=== PATIENT | male | born 1985 | race Caucasian/White ===

== ENCOUNTER 2017-09-29 22:17 | Observation (INO) ==
[2017-09-29] MEDS ORDERED: Haloperidol Lactate 5 MG/ML VIAL ONE (22:21)
[2017-09-29] MEDS ORDERED: *HR* LORazepam 2 MG/ML VIAL ONE (22:21)
--- NOTE | 2017-09-29 22:36 | Emergency Department Note ---
Disposition Clinical Impression: Drug abuse Altered mental status Qualifiers: Altered mental status type: unspecified Qualified Code(s): R41.82 - Altered mental status, unspecified UTI (urinary tract infection) Qualifiers: Indwelling urinary catheter type: unspecified Encounter type: initial encounter Disposition: Admitted As Inpatient Condition: Fair Time of Disposition: 03:48 General Adult HPI - General Chief complaint: ED Altered Mental Status Stated complaint: back pain/ chest pain Time Seen by Provider: 09/29/17 22:30 Source: patient, EMS Mode of arrival: EMS Limitations: altered mental status Nursing Notes Reviewed: Yes Vital Signs Reviewed: Yes - History of Present Illness HPI Narrative: 32-year-old male with known history of drug abuse presenting to the emergency department with chief complaint of altered mental status and chest pain. According to EMS patient was running from the police when he jumped off a 5 [place] [address]. Police restrained him and brought him to the police department. Patient was able to walk from the police car to the department when he started yelling stating everything hurt and started to become altered. They were concerned for drug ingestion. Patient does state he has chest pain in the room but is not alert and oriented to answer questions. No obvious sign of trauma externally. - Related Data Home Medications Medication Instructions Recorded Confirmed No Known Home Drugs 09/30/17 09/30/17 Allergies Allergy/AdvReac Type Severity Reaction Status Date / Time acetaminophen Allergy Swelling Verified 08/12/17 06:12 [From Tylenol-Codeine] of Lip/Tongue/Throat codeine Allergy Swelling Verified 08/12/17 06:12 [From Tylenol-Codeine] of Lip/Tongue/Throat Limitations: ROS unobtainable due to patients medical condition Past Medical History - Past Medical History Source: unable to obtain Medical history: Reports: no medical history - Social History Smoking Status: Unknown if ever smoked Physical Exam - General Limitations: altered mental status General appearance: appears intoxicated, in distress - Head Head exam: atraumatic, normocephalic, normal inspection - Eye Eye exam: Present: normal appearance, PERRL, EOMI. Absent: scleral icterus, conjunctival injection - ENT ENT exam: mucous membranes dry, other (Blue Discoloration around the lips. Not cyanosis. Most likely from an ingestion.) - Neck Neck exam: Present: normal inspection, trachea midline - Chest Chest inspection: Present: normal inspection, symmetric chest wall rise. Absent : rash - Respiratory Respiratory exam: Present: normal lung sounds bilaterally. Absent: respiratory distress, wheezes - Cardiovascular Cardiovascular exam: Present: normal rhythm, tachycardia, normal heart sounds - Abdominal Exam Abdominal exam: Present: soft. Absent: distention - Male exam: Present: normal inspection, normal testicular lie - Extremities Exam Extremities exam: Present: normal inspection - Back Exam Back exam: Present: normal inspection - Psychiatric Psychiatric exam: Present: agitated, anxious - Skin Skin exam: Present: warm Course Course Narrative: 32-year-old male presenting to the emergency department for altered mental status. Patient screaming in the room upon arrival. He is in a c-collar. Head to toe examination did not show any obvious sign of injury. Patient states everything hurts when being palpated. Patient tachycardic in the room and hyperventilating. Oxygen saturation stable. Decision was made to give 5 Haldol and 2 of Ativan IM. After patient was given medication he was no longer aggressive. Due to patient's history and am unable to provide us with a accurate physical exam we will frankel scan him. We will do a CT of the head, cervical spine, thoracic spine, lumbar spine, abdomen and pelvis along with CT of the chest. We will also obtain basic laboratory analysis for altered mental status. Patient is alert but not oriented. He is tachycardic but otherwise vital signs stable. Disposition will most likely be admission but pending results. - Reevaluation(s) Reevaluation #1: All patient's images have come back within normal limits. Laboratory analysis shows urinary tract infection along with polysubstance abuse. Otherwise benign. Patient is resting in the room. Vital signs stable. We will plan to admit the patient at this time for drug intoxication and altered mental status. I spoke with the hospitalist on-call Dr. Camarillo who agrees to accept the patient at this time. Vital Signs Temperature 98.3 F 09/29/17 22:26 Pulse Rate 145 09/29/17 22:26 Respiratory Rate 36 09/29/17 22:26 Blood Pressure 114/83 09/29/17 22:26 O2 Sat by Pulse Oximetry 97 09/29/17 22:26 Temperature 97.4 F L 09/30/17 01:54 Pulse Rate 80 09/30/17 01:54 Respiratory Rate 19 09/30/17 01:54 Blood Pressure 105/67 09/30/17 01:54 O2 Sat by Pulse Oximetry 100 09/30/17 01:54 Oxygen Delivery Oxygen Delivery Room Air Medical Decision Making - Lab Data Result diagrams: 09/29/17 23:10 09/29/17 23:10 Lab Results 09/29/17 09/29/17 09/29/17 Range/Units 23:10 23:10 23:46 WBC 10.8 (4.3-11.1) K/mcL RBC 4.57 (4.19-5.50) M/mcL Hgb 14.4 (12.9-16.9) g/dL Hct 40.3 (37.5-50.1) % MCV 88.2 (83.0-100.0) fL MCH 31.5 (28.0-33.3) pg MCHC 35.7 H (31.6-35.5) g/dL RDW 12.3 (11.5-14.5) % Plt Count 187 (140-400) K/mcL MPV 8.7 L (9.4-12.4) fL Immature Gran % 0.4 (0-4) % Seg Neutrophils % 73.0 % Lymphocytes % 17.9 % Monocytes % 7.8 % Eosinophils % 0.6 % Basophils % 0.3 % Neutrophils # 7.9 (1.6-8.9) K/mcL Lymphocytes # 1.9 (0.6-4.6) K/mcL Monocytes # 0.8 (0.0-1.3) K/mcL Eosinophils # 0.1 (0.0-0.6) K/mcL Basophils # 0.0 (0.0-0.2) K/mcL Sodium 138 (136-145) mEq/L Potassium 3.7 (3.5-5.1) mEq/L Chloride 107 (98-107) mEq/L Carbon Dioxide 25 (23-29) mEq/L BUN 16 (6-20) mg/dL Creatinine 1.23 (0.70-1.30) mg/dL Est GFR ( Amer) > 60 (> 60) Est GFR (Non-Af Amer) > 60 (> 60) BUN/Creatinine Ratio 13 (6-26) Glucose 115 H (70-105) mg/dL Calculated Osmolality 288 (280-300) Calcium 9.6 (8.6-10.3) mg/dL Total Bilirubin 0.9 (0.3-1.0) mg/dL Direct Bilirubin 0.2 (0.0-0.2) mg/dL Indirect Bilirubin 0.7 (0.0-1.2) mg/dL AST 21 (13-39) Units/L ALT 19 (7-52) Units/L Alkaline Phosphatase 59 (34-104) Units/L Troponin I < 0.03 (< 0.04) ng/mL Serum Total Protein 6.9 (6.4-8.9) g/dL Albumin 4.3 (3.5-5.7) g/dL Globulin 2.6 (2.4-3.5) g/dL Albumin/Globulin Ratio 1.7 (1.1-2.2) Urine Color Dark Yellow (Yellow) Urine Clarity Cloudy A (Clear) Urine pH 6.0 (5.0-8.0) pH Units Ur Specific [place] > 1.030 H (1.010-1.025) Urine Protein 30 H (Neg-Trace) mg/dL Urine Glucose (UA) Normal (Normal) mg/dL Urine Ketones Trace H (Negative) mg/dL Urine Blood Small H (Negative) Urine Nitrite Positive A (Negative) Urine Bilirubin Negative (Negative) Urine Urobilinogen Normal (Normal) mg/dL Ur Leukocyte Esterase Moderate H (Negative) Urine Microscopic RBC 0-3 (0-3) per hpf Urine Microscopic WBC TNTC H (0-3) per hpf Ur Squamous Epith Cells Few (None-Few) per lpf Urine Bacteria Moderate H (None-Few) per hpf Hyaline Casts None Seen (None-Few) per lpf Urine Sperm Present Ur Culture Indicated? YES A (NO) Urine Opiates Screen (Qzrtyh=918) ng/mL Ur Barbiturates Screen (Hlxdbi=424) ng/mL Ur Phencyclidine Scrn (Cutoff=25) ng/mL Ur Amphetamines Screen (Gsytmv=0007) ng/mL U Benzodiazepines Scrn (Djdjal=125) ng/mL Urine Cocaine Screen (Cutoff= 300) ng/mL U Marijuana (THC) Screen (Cutoff = 50) ng/mL Ethyl Alcohol < 10 (Less than 10) mg/dL 09/29/17 Range/Units 23:46 WBC (4.3-11.1) K/mcL RBC (4.19-5.50) M/mcL Hgb (12.9-16.9) g/dL Hct (37.5-50.1) % MCV (83.0-100.0) fL MCH (28.0-33.3) pg MCHC (31.6-35.5) g/dL RDW (11.5-14.5) % Plt Count (140-400) K/mcL MPV (9.4-12.4) fL Immature Gran % (0-4) % Seg Neutrophils % % Lymphocytes % % Monocytes % % Eosinophils % % Basophils % % Neutrophils # (1.6-8.9) K/mcL Lymphocytes # (0.6-4.6) K/mcL Monocytes # (0.0-1.3) K/mcL Eosinophils # (0.0-0.6) K/mcL Basophils # (0.0-0.2) K/mcL Sodium (136-145) mEq/L Potassium (3.5-5.1) mEq/L Chloride (98-107) mEq/L Carbon Dioxide (23-29) mEq/L BUN (6-20) mg/dL Creatinine (0.70-1.30) mg/dL Est GFR ( Amer) (> 60) Est GFR (Non-Af Amer) (> 60) BUN/Creatinine Ratio (6-26) Glucose (70-105) mg/dL Calculated Osmolality (280-300) Calcium (8.6-10.3) mg/dL Total Bilirubin (0.3-1.0) mg/dL Direct Bilirubin (0.0-0.2) mg/dL Indirect Bilirubin (0.0-1.2) mg/dL AST (13-39) Units/L ALT (7-52) Units/L Alkaline Phosphatase (34-104) Units/L Troponin I (< 0.04) ng/mL Serum Total Protein (6.4-8.9) g/dL Albumin (3.5-5.7) g/dL Globulin (2.4-3.5) g/dL Albumin/Globulin Ratio (1.1-2.2) Urine Color (Yellow) Urine Clarity (Clear) Urine pH (5.0-8.0) pH Units Ur Specific [place] (1.010-1.025) Urine Protein (Neg-Trace) mg/dL Urine Glucose (UA) (Normal) mg/dL Urine Ketones (Negative) mg/dL Urine Blood (Negative) Urine Nitrite (Negative) Urine Bilirubin (Negative) Urine Urobilinogen (Normal) mg/dL Ur Leukocyte Esterase (Negative) Urine Microscopic RBC (0-3) per hpf Urine Microscopic WBC (0-3) per hpf Ur Squamous Epith Cells (None-Few) per lpf Urine Bacteria (None-Few) per hpf Hyaline Casts (None-Few) per lpf Urine Sperm Ur Culture Indicated? (NO) Urine Opiates Screen Positive H (Cnstek=132) ng/mL Ur Barbiturates Screen Negative (Evtsnu=744) ng/mL Ur Phencyclidine Scrn Negative (Cutoff=25) ng/mL Ur Amphetamines Screen Positive H (Gvpxke=0692) ng/mL U Benzodiazepines Scrn Positive H (Ibctio=099) ng/mL Urine Cocaine Screen Positive H (Cutoff= 300) ng/mL U Marijuana (THC) Screen Positive H (Cutoff = 50) ng/mL Ethyl Alcohol (Less than 10) mg/dL - EKG Data EKG #1 EKG attestation: Yes I reviewed and interpreted this EKG. EKG results narrative: Sinus tachycardia. Significant artifact. 145 beats minute. NM interval 110, QRS 82, QTC 359. Attestation Statement - Attestation Attestation: I examined this patient and my medical decision-making was reviewed with the Resident Physician. I agree with the documented findings, disposition and treatment plan as described except to the extent set forth below. Polysubstance overdose with possible injuries from jumping off a small bridge. There are no findings of trauma on CAT scan. The patient was chemically subdued on arrival to the ER due to agitation. He did have SVT but this resolved with chemical sedation. I do suspect sympathomimetic toxidrome. The patient be admitted after initiation of IV fluids and for clearance of mental status. I spent greater than 35 minutes of critical care time resuscitating this acutely ill patient suffering from drug intoxication as well as injuries after fall. This was excluding billable procedures.
[2017-09-29] MEDS ORDERED: *HR* LORazepam 2 MG/ML VIAL IM ONE (22:39)
[2017-09-29] MEDS ORDERED: Haloperidol Lactate 5 MG/ML VIAL IM ONE (22:39)
[2017-09-29] MEDS ORDERED: Ziprasidone injection 20 MG/ML VIAL IM ONE ×2 (22:43)
[2017-09-29 23:35] LABS: Basophils % 0.3 %; Eosinophils # 0.1 K/mcL (0.0-0.6); Eosinophils % 0.6 %; Hematocrit 40.3 % (37.5-50.1); Hemoglobin 14.4 g/dL (12.9-16.9); Immature Granulocytes % 0.4 % (0-4); Lymphocytes # 1.9 K/mcL (0.6-4.6); Lymphocytes % 17.9 %; Mean Corpuscular HGB Conc 35.7 g/dL (31.6-35.5); Mean Corpuscular Hemoglobin 31.5 pg (28.0-33.3); Mean Corpuscular Volume 88.2 fL (83.0-100.0); Mean Platelet Volume 8.7 fL (9.4-12.4); Monocytes # 0.8 K/mcL (0.0-1.3); Monocytes % 7.8 %; Neutrophils # 7.9 K/mcL (1.6-8.9); Platelet Count 187 K/mcL (140-400); Red Blood Count 4.57 M/mcL (4.19-5.50); Red Cell Distribution Width 12.3 % (11.5-14.5)
[2017-09-29 23:59] LABS: Troponin I < 0.03 ng/mL (< 0.04)
[2017-09-30 00:02] LABS: Alanine Aminotransferase 19 Units/L (7-52); Albumin 4.3 g/dL (3.5-5.7); Albumin/Globulin Ratio 1.7 (1.1-2.2); Alkaline Phosphatase 59 Units/L (34-104); Aspartate Amino Transferase 21 Units/L (13-39); BUN/Creatinine Ratio 13 (6-26); Bilirubin,Direct 0.2 mg/dL (0.0-0.2); Bilirubin,Indirect 0.7 mg/dL (0.0-1.2); Bilirubin,Total 0.9 mg/dL (0.3-1.0); Blood Urea Nitrogen 16 mg/dL (6-20); Calcium 9.6 mg/dL (8.6-10.3); Carbon Dioxide 25 mEq/L (23-29); Chloride 107 mEq/L (98-107); Globulin 2.6 g/dL (2.4-3.5); Glucose 115 mg/dL (70-105); Osmolality,Calculated 288 (280-300); Potassium 3.7 mEq/L (3.5-5.1); Sodium 138 mEq/L (136-145); Total Protein 6.9 g/dL (6.4-8.9); eGFR For African Americans > 60 (> 60); eGFR For Non-African Americans > 60 (> 60)
[2017-09-30 00:20] LABS: Bilirubin,Urine Negative (Negative); Blood,Urine Small (Negative); Clarity,Urine Cloudy (Clear); Color,Urine Dark Yellow (Yellow); Glucose,Urine (UA) Normal (Normal); Ketones,Urine Trace mg/dL (Negative); Leukocyte Esterase,Urine Moderate (Negative); Nitrite,Urine Positive (Negative); Protein,Urine 30 mg/dL (Neg-Trace); Specific Gravity,Urine > 1.030 (1.010-1.025); Urobilinogen,Urine Normal (Normal)
[2017-09-30 00:22] LABS: Bacteria,Urine Moderate per hpf (None-Few); Squamous Epithelial Cell,Urine Few per lpf (None-Few); WBC,Urine TNTC per hpf (0-3)
[2017-09-30 00:30] LABS: Amphetamine Screen,Urine Positive ng/mL (Cutoff=1000); Barbiturate Screen,Urine Negative ng/mL (Cutoff=200); Benzodiazepines Screen,Urine Positive ng/mL (Cutoff=200); Cannabinoid Screen,Urine Positive ng/mL (Cutoff = 50); Cocaine Screen,Urine Positive ng/mL (Cutoff= 300); Opiate Screen,Urine Positive ng/mL (Cutoff=300); Phencyclidine Screen,Urine Negative ng/mL (Cutoff=25)
[2017-09-30] MEDS ORDERED: cefTRIAXone 1,000 MG in Water for inj. (sterile) 20 ML 10 ML IVP ONE (00:31)
[2017-09-30 00:39] LABS: Hyaline Casts,Urine None Seen per lpf (None-Few); Sperm,Urine Present
[2017-09-30 00:40] LABS: RBC,Urine 0-3 per hpf (0-3)
[2017-09-30] MEDS ORDERED: Naloxone 0.4 MG/ML INJ IVP PRN (00:57)
[2017-09-30] MEDS ORDERED: Acetaminophen 325 MG TABLET PO PRN (00:57)
[2017-09-30] MEDS ORDERED: 0.9 % Sodium Chloride 1,000 ML IVC SCH (01:00)
--- NOTE | 2017-09-30 01:03 | Internal Med History&Physical ---
Date of Encounter: 09/30/17 Time of Encounter: 00:59 Assessment and Plan (1) Encephalopathy acute Current visit: Yes Status: Acute Patient is encephalopathic for the most part. He is lethargic and only moans. I suspect this is all from and drug effects. The patient was also given multiple doses of Haldol and Ativan and Geodon in the ED for agitation. I doubt that this is affecting of heroin/opioids as the patient was not really lethargic/unresponsive upon presentation and became like that after he was given medications in the ED. He does have Narcan ordered and we will give him a dose as trial. Otherwise will just continue to monitor. CT head was unremarkable. (2) UTI (urinary tract infection) Current visit: Yes Status: Acute Start ceftriaxone. He was given a dose in the ED. Follow up on cultures. Qualifiers: Indwelling urinary catheter type: unspecified Encounter type: initial encounter Qualified Code(s): T83.511A - Infection and inflammatory reaction due to indwelling urethral catheter, initial encounter; N39.0 - Urinary tract infection, site not specified; N39.0 - Urinary tract infection, site not specified (3) Drug abuse Current visit: Yes Status: Acute The patient has positive urine drug screen for multiple drugs including cocaine , amphetamines, benzos, marijuana, opiates. Watch for withdrawal symptoms. The patient apparently had a heart rate reports the 200s at the police station. On initial presentation he was in the 150s., Heart rate is in the 80s. Continue to monitor. Telemetry. (4) DVT prophylaxis Current visit: Yes Status: Acute SCDs Internal Medicine - H&P: HPI Chief complaint: Tachycardia Admitted From: Emergency Dept Plans for Post Hospital Care: Home History of present illness: Mr. Grossman is a 32 year old male with no past medical history but non-IV drug abuse who was brought in by police earlier this evening. The patient apparently was being chased by police as they suspected burglary. The patient ran from the police however they were able to catch him later. While at the police station the patient started having trouble breathing and his heart rate was in the 200s reportedly. At that point he was brought into the ED where his heart rate was in the 140s. The patient was alert and oriented throughout. The patient had some blue powder out on him and on his mouth. It was suspected that the patient had injected something. Urine drug screen came back positive for amphetamines, cocaine, opiates, benzos, marijuana. The patient denies injecting or using anything. He is very lethargic and barely answers questions. Upon presentation apparently he was agitated and had to be given multiple medications including Geodon/Haldol/Ativan. He had a positive UA and was given ceftriaxone. He denies fever, chills, nausea, vomiting, blurry vision , headache, chest pain, shortness breath, abdominal pain, urinary symptoms, or neurological symptoms. The patient underwent, workup in the ED that was unrevealing. Past Med Surg Social Fam HX - Past Medical History Medical history: no medical history - Social History Smoking Status: Unknown if ever smoked Alcohol use: none Drug use: none Internal Medicine - H&P: Meds No Known Home Drugs 09/30/17 [History] 3 Allergy/AdvReac Type Severity Reaction Status Date / Time acetaminophen Allergy Swelling Verified 08/12/17 06:12 [From Tylenol-Codeine] of Lip/Tongue/Throat codeine Allergy Swelling Verified 08/12/17 06:12 [From Tylenol-Codeine] of Lip/Tongue/Throat All Systems PM: A 10-system review of systems was performed and is negative for pertinent findings except as documented above in the HPI. Review of systems: All systems reviewed are negative except as mentioned above - Constitutional Vitals: Temp Pulse Resp BP Pulse Ox 98.3 F 89 18 106/72 99 09/29/17 22:26 09/30/17 00:38 09/30/17 00:38 09/30/17 00:38 09/30/17 00:38 Exam: GEN: NAD HEENT: AT, NC, No cyanosis, oral mucosa is moist, No JVD Lymphatics: No lymphadenoapthy Eyes: Extrocular muscles intact, anicteric CVS:RRR. S1, S2, No m/r/g RESP: CTAB ABD: Soft, NT, ND, +BS EXT: No edema, No rashes, 2+ DP NEURO: Nonfocal, CN II-XII intact, No focal motor or sensory deficits Psych: Cooperative, Not anxious or depressed Internal Med - H&P Results - Labs CBC & Chem 7: 09/29/17 23:10 09/29/17 23:10 Labs: Short CBC 09/29/17 Range/Units 23:10 WBC 10.8 (4.3-11.1) K/mcL Hgb 14.4 (12.9-16.9) g/dL Hct 40.3 (37.5-50.1) % Plt Count 187 (140-400) K/mcL Neutrophils # 7.9 (1.6-8.9) K/mcL BMP 09/29/17 23:10 Sodium 138 Potassium 3.7 Chloride 107 Carbon Dioxide 25 BUN 16 Creatinine 1.23 Glucose 115 H Calcium 9.6 Cardiac Enzymes 09/29/17 Range/Units 23:10 Troponin I < 0.03 (< 0.04) ng/mL Liver Function 09/29/17 Range/Units 23:10 Total Bilirubin 0.9 (0.3-1.0) mg/dL Direct Bilirubin 0.2 (0.0-0.2) mg/dL AST 21 (13-39) Units/L ALT 19 (7-52) Units/L Alkaline Phosphatase 59 (34-104) Units/L Albumin 4.3 (3.5-5.7) g/dL Urine 09/29/17 Range/Units 23:46 Urine Color Dark Yellow (Yellow) Urine Clarity Cloudy A (Clear) Urine pH 6.0 (5.0-8.0) pH Units Ur Specific [place] > 1.030 H (1.010-1.025) Urine Protein 30 H (Neg-Trace) mg/dL Urine Glucose (UA) Normal (Normal) mg/dL - Impressions ITS Impressions Abdomen/Pelvis CT 09/29/17 22:31 IMPRESSION: No evidence of an acute injury in the chest, abdomen or pelvis. 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 There are few small bilateral nonobstructing renal calculi. D/ / Nilay Gaitan MD / Nilay Gaitan MD Interpreting Provider: Nilay Gaitan MD Cervical Spine CT 09/29/17 22:31 IMPRESSION: No acute intracranial abnormality. No acute abnormality of the cervical spine. *Note that if pain persists or worsens, or if clinically there is concern for CT occult acute cervical abnormality, flexion/extension C-spine series or MRI cervical spine may be considered for additional evaluation. D/ / Kp Gordillo / Kp Gordillo Interpreting Provider: Kp Gordillo Chest CT 09/29/17 22:31 IMPRESSION: No evidence of an acute injury in the chest, abdomen or pelvis. 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 There are few small bilateral nonobstructing renal calculi. D/ / Nilay Gaitan MD / Nilay Gaitan MD Interpreting Provider: Nilay Gaitan MD Chest X-Ray 09/29/17 22:31 IMPRESSION: No radiographic evidence of acute cardiopulmonary disease. D/ / Kp Gordillo / Kp Gordillo Interpreting Provider: Kp Gordillo Head CT 09/29/17 22:31 IMPRESSION: No acute intracranial abnormality. No acute abnormality of the cervical spine. *Note that if pain persists or worsens, or if clinically there is concern for CT occult acute cervical abnormality, flexion/extension C-spine series or MRI cervical spine may be considered for additional evaluation. D/ / Kp Gordillo / Kp Mancusoine Interpreting Provider: Kp Gordillo Lumbar Spine CT 09/29/17 22:31 IMPRESSION: No evidence for fracture. D/ / Terry Kim MD / Terry Kim MD Interpreting Provider: Terry Kim MD Thoracic Spine CT 09/29/17 22:31 IMPRESSION: Unremarkable CT of the thoracic spine. D/ / Kp Gordillo / Kp Gordillo Interpreting Provider: Kp Gordillo Pelvis X-Ray 09/29/17 22:33 IMPRESSION: Unremarkable AP pelvis radiograph. Findings as described involving the proximal right and left femur can be seen with femoroacetabular impingement syndrome. If pain persists or worsens, then additional evaluation with MRI is indicated to ensure no underlying radiographically occult process such as fracture, AVN or transient osteoporosis. D/ / Kp Gordillo / Kp Gordillo Interpreting Provider: Kp Gordillo
[2017-09-30 02:08] LABS: Ethanol < 10 mg/dL (Less than 10)
[2017-09-30 06:52] LABS: BUN/Creatinine Ratio 15 (6-26); Blood Urea Nitrogen 17 mg/dL (6-20); Calcium 8.7 mg/dL (8.6-10.3); Carbon Dioxide 23 mEq/L (23-29); Chloride 110 mEq/L (98-107); Glucose 94 mg/dL (70-105); Magnesium 2.6 mg/dL (1.6-2.6); Osmolality,Calculated 291 (280-300); Sodium 140 mEq/L (136-145); eGFR For African Americans > 60 (> 60); eGFR For Non-African Americans > 60 (> 60)
[2017-09-30 06:56] LABS: Basophils % 0.3 %; Eosinophils # 0.1 K/mcL (0.0-0.6); Eosinophils % 1.2 %; Hematocrit 40.1 % (37.5-50.1); Hemoglobin 13.8 g/dL (12.9-16.9); Immature Granulocytes % 0.1 % (0-4); Lymphocytes # 2.6 K/mcL (0.6-4.6); Lymphocytes % 28.3 %; Mean Corpuscular HGB Conc 34.4 g/dL (31.6-35.5); Mean Corpuscular Hemoglobin 30.6 pg (28.0-33.3); Mean Corpuscular Volume 88.9 fL (83.0-100.0); Mean Platelet Volume 8.9 fL (9.4-12.4); Monocytes # 0.8 K/mcL (0.0-1.3); Monocytes % 8.4 %; Neutrophils # 5.8 K/mcL (1.6-8.9); Platelet Count 181 K/mcL (140-400); Red Blood Count 4.51 M/mcL (4.19-5.50); Red Cell Distribution Width 12.9 % (11.5-14.5); Segmented Neutrophils % 61.7 %
[2017-09-30] MEDS ORDERED: cefTRIAXone 1,000 MG in Water for inj. (sterile) 20 ML 10 ML IVP SCH (09:00)
[2017-09-30 11:04] VITALS: BP 126/76
--- NOTE | 2017-09-30 19:41 | Electrocardiograph Report ---
[address] [address] Test Date: 2017-09-29 Pat Name: Alistair Grossman Department: 103 Room: 3B Gender: M [employer]: LRS : 1985 Requested By: Mindi Tavarez Order Number: [id number] Reading MD: Robert Cheng Measurements Intervals Frederic Rate: 145 P: 71 IA: 110 QRS: 72 QRSD: 82 T: -4 QT: 275 QTc: 359 Interpretive Statements SINUS TACHYCARDIA WITH SHORT IA INTERVAL BASELINE ARTIFACT COMPLICATES ACCURATE INTERPRETATION Electronically Signed On 09-30-2017 19:39:42 EDT by Robert Cheng
== END 2017-09-30 11:55 | disposition left against medical advice (07) ==
LOC: 3BNU 22:17 → EMEROO 22:17 → 3BNU 09-30 01:51
PROVIDERS: ADMIT Internal Medicine; ATTEND Registered Nurse

== ENCOUNTER 2018-01-06 17:02 | Observation (INO) ==
[2018-01-06] MEDS ORDERED: Ondansetron 4 MG/2 ML VIAL ONE (17:06)
[2018-01-06] MEDS ORDERED: Ondansetron 4 MG/2 ML VIAL IVP ONE (17:08)
--- NOTE | 2018-01-06 17:08 | Emergency Department Note ---
Disposition Clinical Impression: Overdose, Polysubstance abuse Disposition: Still a Patient Condition: Fair General Adult HPI - General Chief complaint: ED Overdose Stated complaint: OD Time Seen by Provider: 01/06/18 17:06 - Related Data Home Medications Medication Instructions Recorded Confirmed No Known Home Drugs 09/30/17 01/06/18 Allergies Allergy/AdvReac Type Severity Reaction Status Date / Time acetaminophen Allergy Swelling Verified 08/12/17 06:12 [From Tylenol-Codeine] of Lip/Tongue/Throat codeine Allergy Swelling Verified 08/12/17 06:12 [From Tylenol-Codeine] of Lip/Tongue/Throat Past Medical History - Past Medical History Medical history: Reports: no medical history - Social History Smoking Status: Unknown if ever smoked Alcohol use: Reports: none Drug use: Reports: cocaine, opiates, marijuana, methamphetamine Course Vital Signs Temperature 97.4 F L 01/06/18 17:05 Pulse Rate 89 01/06/18 17:05 Respiratory Rate 14 01/06/18 17:05 Blood Pressure 137/116 01/06/18 17:05 O2 Sat by Pulse Oximetry 99 01/06/18 17:05 Temperature 97.4 F L 01/06/18 17:05 Pulse Rate 82 01/06/18 21:21 Respiratory Rate 16 01/06/18 21:21 Blood Pressure 120/75 01/06/18 21:21 O2 Sat by Pulse Oximetry 98 01/06/18 21:21 Oxygen Delivery Oxygen Delivery Room Air Medical Decision Making - Lab Data Result diagrams: 01/06/18 17:13 01/06/18 17:13 Lab Results 01/06/18 01/06/18 01/06/18 Range/Units 17:13 17:13 17:21 WBC 9.1 (4.3-11.1) K/mcL RBC 4.54 (4.19-5.50) M/mcL Hgb 13.9 (12.9-16.9) g/dL Hct 40.7 (37.5-50.1) % MCV 89.6 (83.0-100.0) fL MCH 30.6 (28.0-33.3) pg MCHC 34.2 (31.6-35.5) g/dL RDW 12.4 (11.5-14.5) % Plt Count 207 (140-400) K/mcL MPV 8.8 L (9.4-12.4) fL Immature Gran % 0.4 (0-4) % Seg Neutrophils % 77.2 % Lymphocytes % 16.1 % Monocytes % 5.6 % Eosinophils % 0.3 % Basophils % 0.4 % Neutrophils # 7.0 (1.6-8.9) K/mcL Lymphocytes # 1.5 (0.6-4.6) K/mcL Monocytes # 0.5 (0.0-1.3) K/mcL Eosinophils # 0.0 (0.0-0.6) K/mcL Basophils # 0.0 (0.0-0.2) K/mcL Sodium 139 (136-145) mEq/L Potassium 3.9 (3.5-5.1) mEq/L Chloride 107 (98-107) mEq/L Carbon Dioxide 22 L (23-29) mEq/L BUN 10 (6-20) mg/dL Creatinine 1.04 (0.70-1.30) mg/dL Est GFR ( Amer) > 60 (> 60) Est GFR (Non-Af Amer) > 60 (> 60) BUN/Creatinine Ratio 10 (6-26) Glucose 125 H (70-105) mg/dL Calculated Osmolality 289 (280-300) Calcium 9.4 (8.6-10.3) mg/dL Total Bilirubin 0.6 (0.3-1.0) mg/dL Direct Bilirubin 0.2 (0.0-0.2) mg/dL Indirect Bilirubin 0.4 (0.0-1.2) mg/dL AST 16 (13-39) Units/L ALT 16 (7-52) Units/L Alkaline Phosphatase 65 (34-104) Units/L Serum Total Protein 6.9 (6.4-8.9) g/dL Albumin 3.9 (3.5-5.7) g/dL Globulin 3.0 (2.4-3.5) g/dL Albumin/Globulin Ratio 1.3 (1.1-2.2) Urine Color Dark Yellow (Yellow) Urine Clarity Cloudy A (Clear) Urine pH 7.5 (5.0-8.0) pH Units Ur Specific [place] 1.028 H (1.010-1.025) Urine Protein Trace (Neg-Trace) mg/dL Urine Glucose (UA) Normal (Normal) mg/dL Urine Ketones Trace H (Negative) mg/dL Urine Blood Negative (Negative) Urine Nitrite Negative (Negative) Urine Bilirubin Negative (Negative) Urine Urobilinogen Normal (Normal) mg/dL Ur Leukocyte Esterase Trace H (Negative) Urine Microscopic RBC 5-15 H (0-3) per hpf Urine Microscopic WBC 5-15 H (0-3) per hpf Ur Squamous Epith Cells Many H (None-Few) per lpf Urine Bacteria None Seen (None-Few) per hpf Hyaline Casts None Seen (None-Few) per lpf Urine Sperm Present Salicylates < 2.5 L (15.0-30.0) mg/dL Urine Opiates Screen (Lnhjqz=099) ng/mL Acetaminophen < 10 L (10-20) mcg/mL Ur Barbiturates Screen (Vrwrng=049) ng/mL Ur Phencyclidine Scrn (Cutoff=25) ng/mL Ur Amphetamines Screen (Qaoeuv=4503) ng/mL U Benzodiazepines Scrn (Lbwnkv=071) ng/mL Urine Cocaine Screen (Cutoff= 300) ng/mL U Marijuana (THC) Screen (Cutoff = 50) ng/mL Ur Drug Screen Interp Ethyl Alcohol < 10 (Less than 10) mg/dL 01/06/18 Range/Units 17:21 WBC (4.3-11.1) K/mcL RBC (4.19-5.50) M/mcL Hgb (12.9-16.9) g/dL Hct (37.5-50.1) % MCV (83.0-100.0) fL MCH (28.0-33.3) pg MCHC (31.6-35.5) g/dL RDW (11.5-14.5) % Plt Count (140-400) K/mcL MPV (9.4-12.4) fL Immature Gran % (0-4) % Seg Neutrophils % % Lymphocytes % % Monocytes % % Eosinophils % % Basophils % % Neutrophils # (1.6-8.9) K/mcL Lymphocytes # (0.6-4.6) K/mcL Monocytes # (0.0-1.3) K/mcL Eosinophils # (0.0-0.6) K/mcL Basophils # (0.0-0.2) K/mcL Sodium (136-145) mEq/L Potassium (3.5-5.1) mEq/L Chloride (98-107) mEq/L Carbon Dioxide (23-29) mEq/L BUN (6-20) mg/dL Creatinine (0.70-1.30) mg/dL Est GFR ( Amer) (> 60) Est GFR (Non-Af Amer) (> 60) BUN/Creatinine Ratio (6-26) Glucose (70-105) mg/dL Calculated Osmolality (280-300) Calcium (8.6-10.3) mg/dL Total Bilirubin (0.3-1.0) mg/dL Direct Bilirubin (0.0-0.2) mg/dL Indirect Bilirubin (0.0-1.2) mg/dL AST (13-39) Units/L ALT (7-52) Units/L Alkaline Phosphatase (34-104) Units/L Serum Total Protein (6.4-8.9) g/dL Albumin (3.5-5.7) g/dL Globulin (2.4-3.5) g/dL Albumin/Globulin Ratio (1.1-2.2) Urine Color (Yellow) Urine Clarity (Clear) Urine pH (5.0-8.0) pH Units Ur Specific [place] (1.010-1.025) Urine Protein (Neg-Trace) mg/dL Urine Glucose (UA) (Normal) mg/dL Urine Ketones (Negative) mg/dL Urine Blood (Negative) Urine Nitrite (Negative) Urine Bilirubin (Negative) Urine Urobilinogen (Normal) mg/dL Ur Leukocyte Esterase (Negative) Urine Microscopic RBC (0-3) per hpf Urine Microscopic WBC (0-3) per hpf Ur Squamous Epith Cells (None-Few) per lpf Urine Bacteria (None-Few) per hpf Hyaline Casts (None-Few) per lpf Urine Sperm Salicylates (15.0-30.0) mg/dL Urine Opiates Screen Positive H (Tvunxf=831) ng/mL Acetaminophen (10-20) mcg/mL Ur Barbiturates Screen Negative (Hfptzb=830) ng/mL Ur Phencyclidine Scrn Negative (Cutoff=25) ng/mL Ur Amphetamines Screen Positive H (Hgdact=5292) ng/mL U Benzodiazepines Scrn Negative (Vpbbyw=790) ng/mL Urine Cocaine Screen Positive H (Cutoff= 300) ng/mL U Marijuana (THC) Screen Positive H (Cutoff = 50) ng/mL Ur Drug Screen Interp See Below Ethyl Alcohol (Less than 10) mg/dL Critical Care Time Critical Care Time: Yes Total Critical Care Time: 30 Attestation: The high probability of a clinically significant, sudden or life threatening deterioration of the [] system(s) required my full and direct attention, intervention and personal management. The aggregate critical care time was [] minutes. This time is in addition to time spent performing reported procedures but includes the following: [] Data Review and interpretation [] Patient assessment and monitoring of vital signs [] Documentation [] Medication orders and management Attestation Statement - Attestation Attestation: I examined this patient and my medical decision-making was reviewed with the Resident Physician. I agree with the documented findings, disposition and treatment plan as described except to the extent set forth below. [id number] time provided Patient arrives by EMS with stable [employer] personnel present. The patient admits to using heroin, fentanyl, Xanax. He denies ingesting intoxicants by swallowing anything. He was given 14 mg of Narcan prehospital with improvement of symptoms. The patient is anxious upon arrival and protecting his airway
--- NOTE | 2018-01-06 17:14 | Emergency Department Note ---
Overdose - Lab Data Result diagrams: 01/06/18 17:13 01/06/18 17:13 Lab Results 01/06/18 01/06/18 01/06/18 Range/Units 17:13 17:13 17:21 WBC 9.1 (4.3-11.1) K/mcL RBC 4.54 (4.19-5.50) M/mcL Hgb 13.9 (12.9-16.9) g/dL Hct 40.7 (37.5-50.1) % MCV 89.6 (83.0-100.0) fL MCH 30.6 (28.0-33.3) pg MCHC 34.2 (31.6-35.5) g/dL RDW 12.4 (11.5-14.5) % Plt Count 207 (140-400) K/mcL MPV 8.8 L (9.4-12.4) fL Immature Gran % 0.4 (0-4) % Seg Neutrophils % 77.2 % Lymphocytes % 16.1 % Monocytes % 5.6 % Eosinophils % 0.3 % Basophils % 0.4 % Neutrophils # 7.0 (1.6-8.9) K/mcL Lymphocytes # 1.5 (0.6-4.6) K/mcL Monocytes # 0.5 (0.0-1.3) K/mcL Eosinophils # 0.0 (0.0-0.6) K/mcL Basophils # 0.0 (0.0-0.2) K/mcL Sodium 139 (136-145) mEq/L Potassium 3.9 (3.5-5.1) mEq/L Chloride 107 (98-107) mEq/L Carbon Dioxide 22 L (23-29) mEq/L BUN 10 (6-20) mg/dL Creatinine 1.04 (0.70-1.30) mg/dL Est GFR ( Amer) > 60 (> 60) Est GFR (Non-Af Amer) > 60 (> 60) BUN/Creatinine Ratio 10 (6-26) Glucose 125 H (70-105) mg/dL Calculated Osmolality 289 (280-300) Calcium 9.4 (8.6-10.3) mg/dL Total Bilirubin 0.6 (0.3-1.0) mg/dL Direct Bilirubin 0.2 (0.0-0.2) mg/dL Indirect Bilirubin 0.4 (0.0-1.2) mg/dL AST 16 (13-39) Units/L ALT 16 (7-52) Units/L Alkaline Phosphatase 65 (34-104) Units/L Serum Total Protein 6.9 (6.4-8.9) g/dL Albumin 3.9 (3.5-5.7) g/dL Globulin 3.0 (2.4-3.5) g/dL Albumin/Globulin Ratio 1.3 (1.1-2.2) Urine Color Dark Yellow (Yellow) Urine Clarity Cloudy A (Clear) Urine pH 7.5 (5.0-8.0) pH Units Ur Specific [place] 1.028 H (1.010-1.025) Urine Protein Trace (Neg-Trace) mg/dL Urine Glucose (UA) Normal (Normal) mg/dL Urine Ketones Trace H (Negative) mg/dL Urine Blood Negative (Negative) Urine Nitrite Negative (Negative) Urine Bilirubin Negative (Negative) Urine Urobilinogen Normal (Normal) mg/dL Ur Leukocyte Esterase Trace H (Negative) Urine Microscopic RBC 5-15 H (0-3) per hpf Urine Microscopic WBC 5-15 H (0-3) per hpf Ur Squamous Epith Cells Many H (None-Few) per lpf Urine Bacteria None Seen (None-Few) per hpf Hyaline Casts None Seen (None-Few) per lpf Urine Sperm Present Salicylates < 2.5 L (15.0-30.0) mg/dL Urine Opiates Screen (Pjqijb=598) ng/mL Acetaminophen < 10 L (10-20) mcg/mL Ur Barbiturates Screen (Ybqkxy=273) ng/mL Ur Phencyclidine Scrn (Cutoff=25) ng/mL Ur Amphetamines Screen (Szrabj=7410) ng/mL U Benzodiazepines Scrn (Tukbac=201) ng/mL Urine Cocaine Screen (Cutoff= 300) ng/mL U Marijuana (THC) Screen (Cutoff = 50) ng/mL Ur Drug Screen Interp Ethyl Alcohol < 10 (Less than 10) mg/dL 01/06/18 Range/Units 17:21 WBC (4.3-11.1) K/mcL RBC (4.19-5.50) M/mcL Hgb (12.9-16.9) g/dL Hct (37.5-50.1) % MCV (83.0-100.0) fL MCH (28.0-33.3) pg MCHC (31.6-35.5) g/dL RDW (11.5-14.5) % Plt Count (140-400) K/mcL MPV (9.4-12.4) fL Immature Gran % (0-4) % Seg Neutrophils % % Lymphocytes % % Monocytes % % Eosinophils % % Basophils % % Neutrophils # (1.6-8.9) K/mcL Lymphocytes # (0.6-4.6) K/mcL Monocytes # (0.0-1.3) K/mcL Eosinophils # (0.0-0.6) K/mcL Basophils # (0.0-0.2) K/mcL Sodium (136-145) mEq/L Potassium (3.5-5.1) mEq/L Chloride (98-107) mEq/L Carbon Dioxide (23-29) mEq/L BUN (6-20) mg/dL Creatinine (0.70-1.30) mg/dL Est GFR ( Amer) (> 60) Est GFR (Non-Af Amer) (> 60) BUN/Creatinine Ratio (6-26) Glucose (70-105) mg/dL Calculated Osmolality (280-300) Calcium (8.6-10.3) mg/dL Total Bilirubin (0.3-1.0) mg/dL Direct Bilirubin (0.0-0.2) mg/dL Indirect Bilirubin (0.0-1.2) mg/dL AST (13-39) Units/L ALT (7-52) Units/L Alkaline Phosphatase (34-104) Units/L Serum Total Protein (6.4-8.9) g/dL Albumin (3.5-5.7) g/dL Globulin (2.4-3.5) g/dL Albumin/Globulin Ratio (1.1-2.2) Urine Color (Yellow) Urine Clarity (Clear) Urine pH (5.0-8.0) pH Units Ur Specific [place] (1.010-1.025) Urine Protein (Neg-Trace) mg/dL Urine Glucose (UA) (Normal) mg/dL Urine Ketones (Negative) mg/dL Urine Blood (Negative) Urine Nitrite (Negative) Urine Bilirubin (Negative) Urine Urobilinogen (Normal) mg/dL Ur Leukocyte Esterase (Negative) Urine Microscopic RBC (0-3) per hpf Urine Microscopic WBC (0-3) per hpf Ur Squamous Epith Cells (None-Few) per lpf Urine Bacteria (None-Few) per hpf Hyaline Casts (None-Few) per lpf Urine Sperm Salicylates (15.0-30.0) mg/dL Urine Opiates Screen Positive H (Hfcfyb=940) ng/mL Acetaminophen (10-20) mcg/mL Ur Barbiturates Screen Negative (Ljbimy=101) ng/mL Ur Phencyclidine Scrn Negative (Cutoff=25) ng/mL Ur Amphetamines Screen Positive H (Nxiiby=3886) ng/mL U Benzodiazepines Scrn Negative (Jfjink=385) ng/mL Urine Cocaine Screen Positive H (Cutoff= 300) ng/mL U Marijuana (THC) Screen Positive H (Cutoff = 50) ng/mL Ur Drug Screen Interp See Below Ethyl Alcohol (Less than 10) mg/dL Overdose HPI - General Chief Complaint: ED Overdose Stated Complaint: OD Time Seen by Provider: 01/06/18 17:06 Nursing Notes Reviewed: Yes Vital Signs Reviewed: Yes - History of Present Illness HPI Narrative: 32-year-old male presents from scene via EMS. Police are also present. Per police, patient was a passenger in a vehicle stopped by the patrolman for routine traffic stop. Officer saw him ingest something. He became unresponsive. Police administered 12 mg intranasal Narcan. EMS administered an additional 2 mg for a total of 14 mg intranasal Narcan before the patient became somewhat responsive. Patient admits to taking a substances today. He states he does in heroin with fentanyl. He denies any ingestion of a large quantity at the traffic stop. ROS: Unobtainable secondary to patient's medical mental status. - Related Data Home Medications Medication Instructions Recorded Confirmed No Known Home Drugs 09/30/17 01/06/18 Allergies Allergy/AdvReac Type Severity Reaction Status Date / Time acetaminophen Allergy Swelling Verified 08/12/17 06:12 [From Tylenol-Codeine] of Lip/Tongue/Throat codeine Allergy Swelling Verified 08/12/17 06:12 [From Tylenol-Codeine] of Lip/Tongue/Throat Limitations: ROS unobtainable due to patients medical condition Past Medical History - Past Medical History Medical history: Reports: no medical history - Social History Smoking Status: Unknown if ever smoked Alcohol use: Reports: none Drug use: Reports: cocaine, opiates, marijuana, methamphetamine Physical Exam Primary survey: Airway: Intact; patient is mumbling, protecting his airway. Breathing: No chest wall tenderness. Bilateral breath sounds equal. Circulation: Bilateral radial, posterior tibial, pulses 2/4. No hemorrhaging. Disability: GCS 15. Exposure: No abrasions, lacerations, ecchymosis, or hematomas on the patient's scalp or face, trunk, extremities. Secondary survey Vital Signs Reviewed General: Patient HEENT: No facial asymmetry. Head is normocephalic and atraumatic. PERRLA. Nasal turbinates moist and pink without epistaxis. Oral mucosa moist. Cardiovascular: Heart tachycardic rate and regular and rhythm without clicks, rubs, gallops, or murmurs. No JVD. PMI nondisplaced. Respiratory: Symmetric chest rise with good respiratory effort. Bilateral breath sounds are clear without wheezing, crackles, or rhonchi. Abdomen: Bowel sounds present normoactive x-4 quadrants. Abdomen is soft, nondistended, and nontender. No organomegaly noted. Musculoskeletal: Spontaneously moving all extremities. Neuro: GCS 8 (E2, V2, M4) Psych: Patient's affect is appropriate for situation. Course Course Narrative: EKG dated 01/06/18 at 17:14 interpreted as sinus rhythm with rate of 92. Short MT 108. No evidence of [id number] or Brugada. QTC 406, QRS 90. Normal axis. Nonspecific ST-T changes. Compared to previous dated 09/29/2017 showing no acute ischemic changes in comparison; short MT interval noted on previous EKG. Patient's urine drug screen is positive for opiates, cocaine, amphetamines, marijuana. He is still protecting his airway and moans to verbal and painful response. Patient will need to be admitted for detoxification or at least until clinically sober. I discussed the patient with the admitting hospitalist, Dr. Ghotra, who agrees to accept the patient for continued medical observation as he иван up. 20:30 Patient is awake, alert, speaking in complete sentences. Was able to get him to agree to admission for continued medical observation. Vital Signs Temperature 97.4 F L 01/06/18 17:05 Pulse Rate 89 01/06/18 17:05 Respiratory Rate 14 01/06/18 17:05 Blood Pressure 137/116 01/06/18 17:05 O2 Sat by Pulse Oximetry 99 01/06/18 17:05 Temperature 97.4 F L 01/06/18 17:05 Pulse Rate 83 01/06/18 19:45 Respiratory Rate 16 01/06/18 19:45 Blood Pressure 118/78 01/06/18 19:45 O2 Sat by Pulse Oximetry 99 01/06/18 19:45 Oxygen Delivery Oxygen Delivery Room Air Disposition Clinical Impression: Overdose, Polysubstance abuse Disposition: Still a Patient Condition: Fair Referrals: NONE,PCP [Primary Care Provider] - Cristy Marshall [Family Provider] - Forms: ED Satisfaction Letter Time of Disposition: 18:07
[2018-01-06 17:31] LABS: Bilirubin,Urine Negative (Negative); Blood,Urine Negative (Negative); Clarity,Urine Cloudy (Clear); Color,Urine Dark Yellow (Yellow); Glucose,Urine (UA) Normal (Normal); Ketones,Urine Trace mg/dL (Negative); Leukocyte Esterase,Urine Trace (Negative); Nitrite,Urine Negative (Negative); PH,Urine 7.5 pH Units (5.0-8.0); Protein,Urine Trace mg/dL (Neg-Trace); Specific Gravity,Urine 1.028 (1.010-1.025); Urobilinogen,Urine Normal (Normal)
[2018-01-06 17:33] LABS: Bacteria,Urine None Seen per hpf (None-Few); Hyaline Casts,Urine None Seen per lpf (None-Few); Squamous Epithelial Cell,Urine Many per lpf (None-Few)
[2018-01-06 17:40] LABS: Basophils % 0.4 %; Eosinophils % 0.3 %; Hematocrit 40.7 % (37.5-50.1); Hemoglobin 13.9 g/dL (12.9-16.9); Immature Granulocytes % 0.4 % (0-4); Lymphocytes # 1.5 K/mcL (0.6-4.6); Lymphocytes % 16.1 %; Mean Corpuscular HGB Conc 34.2 g/dL (31.6-35.5); Mean Corpuscular Hemoglobin 30.6 pg (28.0-33.3); Mean Corpuscular Volume 89.6 fL (83.0-100.0); Mean Platelet Volume 8.8 fL (9.4-12.4); Monocytes # 0.5 K/mcL (0.0-1.3); Monocytes % 5.6 %; Platelet Count 207 K/mcL (140-400); Red Blood Count 4.54 M/mcL (4.19-5.50); Red Cell Distribution Width 12.4 % (11.5-14.5); Segmented Neutrophils % 77.2 %
[2018-01-06 17:41] LABS: Amphetamine Screen,Urine Positive ng/mL (Cutoff=1000); Barbiturate Screen,Urine Negative ng/mL (Cutoff=200); Benzodiazepines Screen,Urine Negative ng/mL (Cutoff=200); Cannabinoid Screen,Urine Positive ng/mL (Cutoff = 50); Cocaine Screen,Urine Positive ng/mL (Cutoff= 300); Opiate Screen,Urine Positive ng/mL (Cutoff=300); Phencyclidine Screen,Urine Negative ng/mL (Cutoff=25)
[2018-01-06 17:55] LABS: Sperm,Urine Present
[2018-01-06 17:58] LABS: Acetaminophen < 10 mcg/mL (10-20); Alanine Aminotransferase 16 Units/L (7-52); Albumin 3.9 g/dL (3.5-5.7); Albumin/Globulin Ratio 1.3 (1.1-2.2); Alkaline Phosphatase 65 Units/L (34-104); Aspartate Amino Transferase 16 Units/L (13-39); BUN/Creatinine Ratio 10 (6-26); Bilirubin,Direct 0.2 mg/dL (0.0-0.2); Bilirubin,Indirect 0.4 mg/dL (0.0-1.2); Bilirubin,Total 0.6 mg/dL (0.3-1.0); Blood Urea Nitrogen 10 mg/dL (6-20); Calcium 9.4 mg/dL (8.6-10.3); Carbon Dioxide 22 mEq/L (23-29); Chloride 107 mEq/L (98-107); Ethanol < 10 mg/dL (Less than 10); Glucose 125 mg/dL (70-105); Osmolality,Calculated 289 (280-300); Potassium 3.9 mEq/L (3.5-5.1); Salicylate < 2.5 mg/dL (15.0-30.0); Sodium 139 mEq/L (136-145); Total Protein 6.9 g/dL (6.4-8.9); eGFR For African Americans > 60 (> 60); eGFR For Non-African Americans > 60 (> 60)
[2018-01-06] MEDS ORDERED: Ondansetron 4 MG/2 ML VIAL IVP PRN (20:36)
[2018-01-06] MEDS ORDERED: Ibuprofen 400 MG TABLET PO PRN (20:36)
[2018-01-06] MEDS ORDERED: Naloxone 0.4 MG/ML INJ IVP PRN (20:36)
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
[2018-01-06] MEDS: *HR* Heparin 5,000 UNIT/ML VIAL SQ SCH (21:46)
[2018-01-06] MEDS: 0.9 % Sodium Chloride w KCl 20 MEQ/1,000 ML MLS IVC SCH (21:51)
[2018-01-07] MEDS: 0.9 % Sodium Chloride w KCl 20 MEQ/1,000 ML MLS IVC SCH (05:30)
[2018-01-07] MEDS: *HR* Heparin 5,000 UNIT/ML VIAL SQ SCH (09:50)
[2018-01-07 10:36] LABS: Alanine Aminotransferase 14 Units/L (7-52); Albumin 3.3 g/dL (3.5-5.7); Albumin/Globulin Ratio 1.2 (1.1-2.2); Alkaline Phosphatase 57 Units/L (34-104); Aspartate Amino Transferase 14 Units/L (13-39); BUN/Creatinine Ratio 10 (6-26); Bilirubin,Total 0.8 mg/dL (0.3-1.0); Blood Urea Nitrogen 8 mg/dL (6-20); Carbon Dioxide 21 mEq/L (23-29); Chloride 112 mEq/L (98-107); Globulin 2.7 g/dL (2.4-3.5); Glucose 123 mg/dL (70-105); Osmolality,Calculated 286 (280-300); Potassium 4.4 mEq/L (3.5-5.1); Sodium 138 mEq/L (136-145); eGFR For African Americans > 60 (> 60); eGFR For Non-African Americans > 60 (> 60)
[2018-01-07] MEDS ORDERED: *HR* LORazepam 2 MG/ML VIAL IVP PRN (11:17)
--- NOTE | 2018-01-07 11:24 | Internal Med Progress Note ---
Date of Encounter: 01/07/18 Time of Encounter: :18 - Assessment and plan (1) Overdose Current Visit: Yes Status: Acute Assessment and plan: Presented S/P overdose Ingested multiple unknown substances UDS positive for opiates, amphetamines, cocaine and marijuana Patient admits to being a frequent heroin and marijuana and cocaine abuser S/P resuscitation with Narcan by EMS and ED staff Patient now alert and oriented 3, appears mildly agitated and anxious; able to recall events prompting admission Denies any suicidal/homicidal ideation, admits to some auditory hallucinations but denies visual hallucinations. Has mild fine tremors and is likely an early withdrawal Continue telemetry and pulse oximeter monitoring We will give the patient half a milligram IV Ativan every 6 when necessary for withdrawal symptoms Consult oncology social work for potential outpatient treatment of patient amendable Qualifiers: Encounter type: initial encounter Injury intent: accidental or unintentional Qualified Code(s): T50.901A - Poisoning by unspecified drugs, medicaments and biological substances, accidental (unintentional), initial encounter (2) Polysubstance abuse Current Visit: Yes Status: Acute Assessment and plan: Chronic history of polysubstance abuse No intent on cessation of substance abuse presented S/P overdose Patient reports that during a traffic stop he ingested multiple substances prior to the officers arrival to the car This led to his subsequent overdose He was provided counseling on the need to quit and engage in proper self-care (3) DVT prophylaxis Current Visit: Yes Status: Acute Assessment and plan: Continue Heparin SQ. - Time Spent With Patient Total time spent is greater than 50% in coordination of care (as documented) at patient's floor/unit and/or counseling patient: 25 - 35 minutes - Subjective Interval history: no acute changes. denies any pain or discomfort. However, he is reporting shakes, auditory hallucinations. Denies any visual hallucinations, suicidal ideation or homicidal ideation. Reports that he was not trying to take his life when he ingested substances which prompted his admission - Constitutional Vitals: Temp Pulse Resp BP Pulse Ox 98.2 F 54 18 119/75 98 01/07/18 07:44 01/07/18 07:44 01/07/18 07:44 01/07/18 07:44 01/07/18 07:44 General appearance: Present: cooperative, A&O X 3, no acute distress, answers questions appropriately - Head Head exam: Present: atraumatic, normocephalic - Eye Eye exam: Present: PERRL, conjuntiva pink, sclera anicteric Pupils: Present: PERRL - Neck Neck exam general surgery: Present: supple, trachea midline. Absent: lymphadenopathy - Respiratory Respiratory exam: Present: CTAB. Absent: accessory muscle use, rales, rhonchi, wheezes - Cardiovascular Cardiovascular exam: Present: RRR, +S1, +S2. Absent: diastolic murmur, gallop, rubs, systolic murmur - GI/Abdominal GI/Abdominal exam: Present: normal bowel sounds, soft, no peritoneal signs. Absent: distended, tenderness - Extremities Exam Extremities exam: Present: warm, radial pulses palpable and symmetrical. Absent : calf tenderness, cyanotic, pedal edema Additional comments: Fine tremors - Neurological Exam Neurological exam: Present: alert, CN II-XII intact, oriented X3, no focal deficits. Absent: pronater drift, facial droop, speech deficit - Psychiatric Psychiatric exam: Present: agitated, anxious. Absent: homicidal ideation, manic , normal affect, normal mood, suicidal ideation - Skin Skin exam: Present: dry, intact Internal Medicine: Result - Labs CBC & Chem 7: 01/06/18 17:13 01/07/18 10:06 Labs: BMP 01/07/18 10:06 Sodium 138 Potassium 4.4 Chloride 112 H Carbon Dioxide 21 L BUN 8 Creatinine 0.84 Glucose 123 H Calcium 9.0 Liver Function 01/07/18 Range/Units 10:06 Total Bilirubin 0.8 (0.3-1.0) mg/dL AST 14 (13-39) Units/L ALT 14 (7-52) Units/L Alkaline Phosphatase 57 (34-104) Units/L Albumin 3.3 L (3.5-5.7) g/dL Consult Discharge Plan - Plan Referrals: NONE,PCP [Primary Care Provider] - Cristy Marshall [Family Provider] -
[2018-01-07 11:43] VITALS: BP 124/78
--- NOTE | 2018-01-07 12:32 | Event Note ---
Date of Encounter: 01/07/18 Time of Encounter: 12:29 The nurse reports that she went to check on the patient early this afternoon and the patient was not found in his room. A sina Law was called but the patient was not found throughout the hospital. Upon my interview with the patient this morning the patient was amendable to staying an additional 24 hours for further monitoring. He was offered discharge later this afternoon should his vitals stabilized however he refused and was wanting to stay overnight at least. However, I noticed during my assessment that he was mildly tremulous and is having some auditory hallucinations. He did deny visual hallucinations, suicidal ideation and homicidal ideation. Nonetheless, he appeared to be an early withdrawal. Patient has a significant history of chronic polysubstance abuse and ingested multiple drugs prior to being admitted , this is what prompted the overdose and admission. The patient did leave AGAINST MEDICAL ADVICE however he did not sign AGAINST MEDICAL ADVICE papers and was not able to be given information or education regarding leaving AGAINST MEDICAL ADVICE. Again, and the nursing staff went to check on the patient in his room this afternoon he was never to be found, and during the code Brown the patient was not found in the vicinity of the hospital
--- NOTE | 2018-01-08 06:46 | Electrocardiograph Report ---
[address] [address] Test Date: 2018-01-06 Pat Name: Alistair Grossman Department: 104 Room: 3B14 Gender: M Optician: TMR : 1985 Requested By: Mitchell Oropeza Order Number: [id number] Reading MD: Robert Cheng Measurements Intervals [place] Rate: 92 P: 56 CO: 108 QRS: 66 QRSD: 90 T: 37 QT: 356 QTc: 406 Interpretive Statements SINUS RHYTHM WITH SHORT CO INTERVAL MINIMAL VOLTAGE CRITERIA FOR LVH, CONSIDER NORMAL VARIANT EARLY REPOLARIZATION VERSUS PERICARDITIS Electronically Signed On 01-08-2018 6:44:19 EDT by Robert Cheng
== END 2018-01-07 12:23 | disposition left against medical advice (07) ==
LOC: EMEROO 17:02 → 3BNU 17:02
PROVIDERS: ADMIT Pediatrics; ATTEND Pediatrics